=== PATIENT | female | born 1995 | race African-American/Black ===

== ENCOUNTER 2018-04-25 19:55 | Emergency (ER) | payer OTHER ==
[~2018-04-25] VITALS: Ht 157.5 cm; Wt 104.0 kg
[2018-04-25] MEDS ORDERED: HYDROCODONE/ACETAMINOPHEN 5/325MG TABLET PO STA (20:42)
[2018-04-25 22:52] VITALS: BP 105/56
== END 2018-04-25 23:05 | disposition home or self-care (01) ==
LOC: ER 19:55
DX: M24.411 Recurrent dislocation, right shoulder (principal); R03.0 Elevated blood-pressure reading, without diagnosis of hypertension
CPT/HCPCS: 73030; 81025; 99283